=== PATIENT | female | born 1960 | race Caucasian/White ===

== ENCOUNTER 2020-11-15 06:51 | Emergency (ER) | payer OTHER ==
[~2020-11-15] VITALS: Ht 172.7 cm; Wt 89.8 kg
[~2020-11-15 06:51] MED LIST: DULO60 PO; FEXPSEER PO; FLUSAL1005 IH; NEXIUM 40 MG PO
[2020-11-15] MEDS ORDERED: CLIN300 PO (07:16)
[2020-11-15 07:50] LABS: BASOPHILS ABSOLUTE AUTO 0.06 K/mm3 (0.00-0.23); BASOPHILS PERCENT AUTO 1 % (0-2); EOSINOPHILS ABSOLUTE AUTO 0.44 K/mm3 (0.00-0.68); EOSINOPHILS PERCENT AUTO 7 % (0-6); Hematocrit 47.1 % (33.0-51.0); Hemoglobin 15.6 g/dL (11.5-16.0); IMMATURE GRAN ABSOLUTE AUTO 0.02 K/mm3 (0.00-0.10); IMMATURE GRAN PERCENT AUTO 0 % (0-1); LYMPHOCYTES PERCENT AUTO 25 % (21-46); MONOCYTES ABSOLUTE AUTO 0.58 K/mm3 (0.16-1.47); MONOCYTES PERCENT AUTO 9 % (4-13); Mean Corpuscular HGB 29.5 pg (26.0-34.0); Mean Corpuscular HGB Conc 33.1 g/dL (31.5-36.5); Mean Corpuscular Volume 89 fL (80-100); Mean Platelet Volume 9.8 fL (9.1-12.4); NEUTROPHILS ABSOLUTE AUTO 3.94 K/mm3 (1.96-9.15); NEUTROPHILS PERCENT AUTO 59 % (41-73); Platelet Count 243 K/mm3 (150-400); RDW Coefficient Variation 12.2 % (11.7-14.2); RDW Standard Deviation 39.9 fL (35.1-46.3); Red Blood Cell Count 5.28 M/mm3 (3.80-5.20); White Blood Cell Count 6.74 K/mm3 (4.00-11.30)
[2020-11-15] MEDS ORDERED: ACYC800 PO (07:50)
[2020-11-15] MEDS ORDERED: HYDR1TAB94 PO (07:50)
[2020-11-15] MEDS ORDERED: PRED20 PO (07:50)
[2020-11-15 08:07] LABS: Anion Gap 6 mmol/L (6-16); Blood Urea Nitrogen 8 mg/dL (8-24); CO2, Blood 28 mmol/L (21-32); Calcium, Blood 8.9 mg/dL (8.5-10.1); Chloride, Blood 107 mmol/L (98-108); Creatinine, Blood 0.67 mg/dL (0.40-1.00); Glomerular Filtration Rate >60 (60-); Glucose, Blood 91 mg/dL (70-99); Potassium, Blood 4.1 mmol/L (3.5-5.5); Sodium, Blood 141 mmol/L (136-145)
== END 2020-11-15 08:49 | disposition home or self-care (01) ==
LOC: ER 06:51
PROVIDERS: Emergency Medicine
DX: B02.21 Postherpetic geniculate ganglionitis (principal); K21.9 Gastro-esophageal reflux disease without esophagitis; Z79.899 Other long term (current) drug therapy
CPT/HCPCS: 36415; 70450; 80048; 85025; 99284-25; A9270; J7512

== ENCOUNTER → 2021-08-22 | Outpatient (CLI) | payer OTHER ==
[~2021-08-22] MED LIST changes: +ACYC800 PO; +CLIN300 PO; +HYDR1TAB94 PO; +PRED20 PO
== END | disposition home or self-care (01) ==
LOC: LAB 16:29 → LAB SHORT 16:29
DX: M79.671 Pain in right foot (principal)
CPT/HCPCS: 84550

== ENCOUNTER 2022-11-23 15:29 | Emergency (ER) | payer OTHER ==
[~2022-11-23] VITALS: Ht 172.7 cm; Wt 87.1 kg
== END 2022-11-23 19:22 | disposition home or self-care (01) ==
LOC: ER 15:29
DX: H49.01 Third [oculomotor] nerve palsy, right eye (principal); C50.919 Malignant neoplasm of unspecified site of unspecified female breast; Z88.2 Allergy status to sulfonamides; Z88.8 Allergy status to other drugs, medicaments and biological substances; Z79.899 Other long term (current) drug therapy
CPT/HCPCS: 70450

== ENCOUNTER 2024-03-11 10:42 | Day surgery (SDC) | payer OTHER ==
[2024-03-11] VITALS (9 sets, daily range): BP systolic 121–141; BP diastolic 80–116
[~2024-03-11] VITALS: Ht 172.7 cm; Wt 90.0 kg
[~2024-03-11 10:42] MED LIST changes: +ASPIR 8181 M1 PO; +CILO100 PO; +CILOSTAZOL PO; +DULOXETINE HCL60 M1 PO; +KISQALI1 EAC4 PO; +LIPITOR80 MG PO; +XARELTO1 EAC1 PO; +XARELTO20 MG PO
[2024-03-11] MEDS ORDERED: HYDACE10B PO (11:19)
[2024-03-11] MEDS ORDERED: [UNRECOGNIZED DRUG - OTHER] (11:20)
[2024-03-11] MEDS ORDERED: TRIA15CR3 TOP (11:21)
[2024-03-11] MEDS ORDERED: Verapamil HCL 2.5 MG/ML 2ML Injection ONE (11:50)
[2024-03-11] MEDS ORDERED: NS 250 ML IV ONE (11:51)
[2024-03-11] MEDS ORDERED: Heparin Sodium 1000 Units/ML 10ML MDV ONE ×2 (11:51→12:09)
[2024-03-11] MEDS ORDERED: Nitroglycerin 2 MG/20 ML BTL ONE (11:51)
[2024-03-11] MEDS ORDERED: NS 1,000 ML IV ONE ×2 (11:51→12:00)
[2024-03-11] MEDS ORDERED: Midazolam HCl 1MG / ML 2ML Vial ONE (11:59)
[2024-03-11] MEDS ORDERED: FentaNYL Citrate 50 MCG/ML 2 ML Injection ONE (12:00)
--- NOTE | 2024-03-11 13:15 | NUR ---
PATIENT ARRIVED TO RECOVERY ROOM LAYING FLAT IN BED. L RADIAL TR BAND IN PLACE. SITE C/D/I SOFT/NONTENDER, NO EVIDENCE OF BLEEDING. VSS ON RA
--- NOTE | 2024-03-11 14:00 | NUR ---
PATIENT SITTING UPRIGHT IN BED TOLERATING PO INTAKE WELL. VSS ON RA. L RADIAL TR BAND IN PLACE. SITE C/D/I
--- NOTE | 2024-03-11 14:26 | NUR ---
INITIAL 3 CC OF AIR REMOVED FROM L RADIAL TR BAND. SITE C/D/I SOFT/NONTENDER, NO EVIDENCE OF BLEEDING. VSS ON RA. PATIENT TOLERATING PO INTAKE WELL. PATIENT SITTING COMFORTABLY IN BED ON CELLULAR DEVICE
--- NOTE | 2024-03-11 14:40 | NUR ---
ALL AIR REMOVED FROM L RADIAL TR BAND. SITE C/D/I SOFT/NONTENDER, NO EVIDENCE OF BLEEDING
--- NOTE | 2024-03-11 14:57 | NUR ---
DISCHARGE INSTRUCTIONS REVIEWED WITH PATIENT. ALL QUESTIONS WERE ANSWERED. VSS ON RA
--- NOTE | 2024-03-11 15:15 | NUR ---
PATIENT DISCHARGED HOME AT THIS TIME. DISCHARGE INSTRUCTIONS REVIEWED WITH SPOUSE AND PATIENT. PIV REMOVED WITHOUT DIFFICULTY, CATHETER INTACT. TR BAND REMOVED, ARM BOARD IN PLACE. SITE C/D/I, SOFT/NONTENDER, NO EVIDENCE OF BLEEDING. PATIENT ABLE TO GET DRESSED WITHOUT DIFFICULTY. PATIENT WHEELED TO HOSPITAL ENTRANCE AND SPOUSE ABLE TO PROVIDE TRANSPORTATION HOME
== END 2024-03-11 15:15 | disposition home or self-care (01) ==
LOC: MHTC 10:42
DX: I77.1 Stricture of artery (principal); F17.210 Nicotine dependence, cigarettes, uncomplicated; Z88.2 Allergy status to sulfonamides; Z79.82 Long term (current) use of aspirin; Z79.899 Other long term (current) drug therapy
CPT/HCPCS: 37236; 75605; 75710; 76937; 99152; 99153; C1769; C1876; C1887; C1894; J1644; J2250; J3010; J7030; J7050; Q9967

== ENCOUNTER 2024-03-13 02:45 | Day surgery (SDC) | payer OTHER ==
[~2024-03-13 02:45] MED LIST changes: +HYDACE10B PO; +TRIA15CR3 TOP; +[UNRECOGNIZED DRUG - OTHER]
== END 2024-03-13 23:10 | disposition home or self-care (01) ==
LOC: WOUND 02:45
DX: L98.492 Non-pressure chronic ulcer of skin of other sites with fat layer exposed (principal); I77.1 Stricture of artery; Z72.0 Tobacco use; K21.9 Gastro-esophageal reflux disease without esophagitis; Z88.1 Allergy status to other antibiotic agents
CPT/HCPCS: 99406; G0463

== ENCOUNTER 2024-03-19 03:26 | Day surgery (SDC) | payer OTHER ==
[2024-03-19] MEDS ORDERED: Lidocaine HCl 4% Cream 5 GM ONE (15:08)
== END 2024-03-20 22:44 | disposition home or self-care (01) ==
LOC: WOUND 03:26
DX: L98.492 Non-pressure chronic ulcer of skin of other sites with fat layer exposed (principal); I77.1 Stricture of artery; Z72.0 Tobacco use
CPT/HCPCS: A9270; G0463

== ENCOUNTER 2024-04-02 04:01 | Day surgery (SDC) | payer OTHER | END 2024-04-02 23:00 | disposition home or self-care (01) | LOC: WOUND 04:01 | DX: L98.492 Non-pressure chronic ulcer of skin of other sites with fat layer exposed (principal); I73.9 Peripheral vascular disease, unspecified; F17.200 Nicotine dependence, unspecified, uncomplicated | CPT/HCPCS: G0463 ==

== ENCOUNTER 2024-04-22 04:11 | Day surgery (SDC) | payer OTHER | END 2024-04-22 23:25 | disposition home or self-care (01) | LOC: WOUND 04:11 | DX: L98.491 Non-pressure chronic ulcer of skin of other sites limited to breakdown of skin (principal); M79.642 Pain in left hand; I77.1 Stricture of artery; Z72.0 Tobacco use | CPT/HCPCS: G0463 ==

== ENCOUNTER → 2024-12-11 | Outpatient (CLI) | payer OTHER | LOC: LAB SHORT 09:32 → LAB 09:32 | DX: N76.4 Abscess of vulva (principal) | CPT/HCPCS: 87070; 87205 ==

== ENCOUNTER → 2024-12-15 | Outpatient (CLI) | payer OTHER | LOC: LAB SHORT 13:52 → LAB 13:52 | DX: N75.1 Abscess of Bartholin's gland (principal) | CPT/HCPCS: 88304 ==